=== PATIENT | male | born 1965 ===

== ENCOUNTER 2019-01-03 08:28 | Emergency (ER) | payer OTHER ==
[2019-01-03 08:32] VITALS: BMI 32.3
[2019-01-03 08:33] VITALS: TEMP 98.3
--- NOTE | 2019-01-03 09:48 | ED PDOC ---
Upper Extremity Pain/Injury Time Seen by Provider: 01/03/19 09:11 Chief Complaint (Nursing): Upper Extremity Problem/Injury Chief Complaint (Provider): Upper Extremity Problem/Injury History Per: Patient History/Exam Limitations: no limitations Onset/Duration Of Symptoms: Days (x7) Current Symptoms Are (Timing): Still Present Additional Complaint(s): 53 y/o male no known significant PMHx presents to the ED for evaluation of left arm pain and pain to the left side of the head, onset one week ago. Patient denies weakness, numbness, tingling, chest pain and shortness of breath. Patient states he was never diagnosed with any medical problems but believes he has HTN. Patient notes of one taking his friend's HTN medications. PMD: no provider Past Medical History Reviewed: Historical Data, Nursing Documentation, Vital Signs Vital Signs: Last Vital Signs Temp 98.3 F 01/03/19 08:32 Pulse 71 01/03/19 08:59 Resp 18 01/03/19 08:32 BP 152/90 H 01/03/19 08:59 Pulse Ox 99 01/03/19 08:32 - Surgical History Surgical History: No Surg Hx - Family History Family History: States: Unknown Family Hx - Immunization History Hx Tetanus Toxoid Vaccination: No Hx Influenza Vaccination: No Hx Pneumococcal Vaccination: No - Allergies Allergies/Adverse Reactions: Allergies Allergy/AdvReac Type Severity Reaction Status Date / Time No Known Allergies Allergy Verified 01/03/19 09:25 Review of Systems ROS Statement: Except As Marked, All Systems Reviewed And Found Negative Cardiovascular: Negative for: Chest Pain Respiratory: Negative for: Shortness of Breath Musculoskeletal: Positive for: Arm Pain (left arm pain), Other (left head pain) Neurological: Negative for: Weakness, Numbness, Other (tingling) Physical Exam - Reviewed Nursing Documentation Reviewed: Yes Vital Signs Reviewed: Yes - Physical Exam Appears: Positive for: No Acute Distress Head Exam: Positive for: ATRAUMATIC, NORMOCEPHALIC Skin: Positive for: Normal Color, Warm, Dry Eye Exam: Positive for: Normal appearance, EOMI, PERRL Neck: Positive for: Normal, Painless ROM, Supple Cardiovascular/Chest: Positive for: Regular Rate, Rhythm. Negative for: Murmur Respiratory: Positive for: Normal Breath Sounds. Negative for: Respiratory Distress Gastrointestinal/Abdominal: Positive for: Normal Exam, Soft. Negative for: Tend erness Extremity: Positive for: Normal ROM (Full ROM of the left arm). Negative for: Deformity Neurological/Psych: Positive for: Awake, Alert, Oriented (x3). Negative for: Motor/Sensory Deficits - Laboratory Results Result Diagrams: 01/03/19 09:37 01/03/19 09:37 - ECG ECG Rhythm: Positive for: Sinus Rhythm Interpretation Of Abn EKG: with T-wave inversions in lead 3 O2 Sat by Pulse Oximetry: 99 (RA) Pulse Ox Interpretation: Normal Medical Decision Making Medical Decision Making: Time: 924 A/P: Workup for cardiac referred pain vs. musculoskletal pain. -- Labs with Troponin -- BMP -- Troponin I -- CBC with Differentials Scribe Attestation: Documented by Mignon Kendall, acting as a scribe Linda Ray MD. Provider Scribe Attestation: All medical record entries made by the Scribe were at my direction and personally dictated by me. I have reviewed the chart and agree that the record accurately reflects my personal performance of the history, physical exam, medical decision making, and the department course for this patient. I have also personally directed, reviewed, and agree with the discharge instructions and d isposition. Disposition - Clinical Impression Clinical Impression: Arm pain, Hypertension - Disposition Disposition: Routine/Home Disposition Time: 11:06 Condition: IMPROVED Additional Instructions: Take Motrin or Tylenol for pain. Change diet and exercise to improve blood pressure. Follow up with primary medical doctor for further evaluation of blood pressure. If pain worsens or new symptoms develop such as weakness, dizziness, or chest pain, return to the emergency department. Instructions: Low Salt Diet, Controlling Your Blood Pressure Through Lifestyle Forms: [employer] (Slovak) Print Language: IRISH
[2019-01-03 09:53] LABS: BASO % 0.7 % (0.0-2.0); EOS # 0.2 K/uL (0.0-0.7); EOS % 2.7 % (0.0-4.0); LYMPH # 1.8 K/uL (1.0-4.3); LYMPH % 26.9 % (20.0-40.0); MEAN CELL VOLUME 89.6 fl (80.0-94.0); MEAN CORPUSCULAR HEMOGLOBIN 31.3 pg (27.0-31.0); MEAN CORPUSCULAR HGB CONC 34.9 g/dL (33.0-37.0); MEAN PLATELET VOLUME 8.4 fl (7.2-11.7); MONO # 0.5 K/uL (0.0-0.8); NEUT # 4.1 K/uL (1.8-7.0); NEUT % 62.7 % (50.0-75.0); RBC 5.1 Mil/uL (4.40-5.90); RED CELL DISTRIBUTION WIDTH 12.6 % (11.5-14.5); WHITE BLOOD COUNT 6.5 K/uL (4.8-10.8)
[2019-01-03 10:06] LABS: BLOOD UREA NITROGEN 10 mg/dl (9-20); CALCIUM 10.2 mg/dL (8.4-10.2); GFR NON-AFRICAN AMERICAN > 60
[2019-01-03] MEDS ORDERED: Naproxen 500 MG TAB PO STA (10:52)
[2019-01-03] MEDS ORDERED: Naproxen 500 MG TAB PO ONE (11:02)
[2019-01-03 11:20] VITALS: BP 148/84; PULSE 76; RESP 16
[2019-01-05 20:44] VITALS: O2SAT 99
== END 2019-01-03 11:20 | disposition home or self-care (01) ==
LOC: H.ER 08:28
DX: M79.602 Pain in left arm (principal); I10 Essential (primary) hypertension